=== PATIENT | male | born 1955 | race Caucasian/White ===

== ENCOUNTER 2023-03-24 05:25 | Day surgery (SDC) | payer MEDICARE, OTHER ==
[2023-03-18 12:06] LABS: CLARITY,URINE CLEAR (Clear); COLOR,URINE YELLOW (Yellow); GLUCOSE, URINE NEGATIVE (Neg); KETONES,URINE NEGATIVE (Neg); LEUKOCYTE ESTERASE ,URINE NEGATIVE (Neg); NITRITES, URINE NEGATIVE (Neg); OCCULT BLOOD,URINE NEGATIVE (Neg); PROTEIN,URINE NEGATIVE (Neg); UROBILINOGEN,URINE 0.2 E.U/dL (0.2-1.0)
[2023-03-18 12:07] LABS: UA COLLECTION TYPE CLN CATCH MIDSTREAM
[2023-03-18 12:09] LABS: BASOPHILS # (AUTO) 0.1 X10'3 (0-0.2); BASOPHILS % (AUTO) 0.9 % (0-1); EOSINOPHILS # (AUTO) 0.1 X10'3 (0-0.9); EOSINOPHILS % (AUTO) 1.6 % (0-6); LYMPHOCYTES # (AUTO) 1.6 X10'3 (1.1-4.8); LYMPHOCYTES % (AUTO) 28.7 % (21-51); MEAN CORPUSCULAR HEMOGLOBIN 29.6 PG (27.0-31.0); MEAN CORPUSCULAR HGB CONC 33.2 g/dL (33.0-36.5); MEAN CORPUSCULAR VOLUME 89.3 FL (78-98); MEAN PLATELET VOLUME 8.1 FL (7.4-10.4); MONOCYTES # (AUTO) 0.5 X10'3 (0-0.9); MONOCYTES % (AUTO) 8.6 % (2-12); NEUTROPHILS # (AUTO) 3.4 X10'3 (1.8-7.7); NEUTROPHILS % (AUTO) 60.2 % (42-75); PRE OP HEMATOCRIT 52.4 % (42.0-52.0); PRE OP HEMOGLOBIN 17.4 g/dL (14.0-17.9); PRE OP PLATELET COUNT 211 X10'3 (140-440); RED BLOOD COUNT 5.87 X10'6 (4.70-6.10); RED CELL DISTRIBUTION WIDTH 14.3 % (11.5-14.5)
[2023-03-18 12:22] LABS: PRE OP PROTIME 10.5 SECONDS (9.0-12.0)
[2023-03-18 12:27] LABS: ALBUMIN 4.3 G/DL (3.4-5.0); ALBUMIN/GLOBULIN RATIO 1.4 (1.1-1.5); ALKALINE PHOSPHATASE 57 IU/L (46-116); BLOOD UREA NITROGEN 16 MG/DL (7-18); BUN/CREATININE RATIO 16.7 (10.0-20.0); CALCIUM 8.9 MG/DL (8.5-10.1); CHLORIDE 105 MMOL/L (99-107); CREATININE 0.96 MG/DL (0.60-1.10); PRE OP ANION GAP 11 (8-16); PRE OP AST 51 U/L (10-37); PRE OP BILIRUB, TOTAL 0.7 MG/DL (0.0-1.0); PRE OP GLUCOSE 96 MG/DL (70-104); PRE OP POTASSIUM 4.4 MMOL/L (3.4-5.1); PRE OP SODIUM 142 MMOL/L (135-145); TOTAL CARBON DIOXIDE 26.4 MMOL/L (24-32); TOTAL PROTEIN 7.4 G/DL (6.4-8.2); eGFR 78 ML/MIN
[2023-03-18 12:28] LABS: PRE OP ALT 117 U/L (30-65)
[~2023-03-24] VITALS: Ht 182.9 cm; Wt 97.4 kg
[~2023-03-24 05:25] MED LIST: CITRUCEL; FEXO180T94 PO; LEVO112T52 PO; OSTEO BI-FLEX; ROSU20TA73 PO; ringers solution, lacted 1,000 ML IV SCH
[2023-03-24] MEDS ORDERED: famotidine 20mg tablet PO ONE (05:30)
[2023-03-24] MEDS ORDERED: cefazolin 2gm/D5W 100mL 100 ML IV ONE (05:30)
[2023-03-24 06:00] VITALS: BP 133/87
[2023-03-24] MEDS ORDERED: BUPIVAcaine/PF 2.5 mg/ml (0.25%) 30ml vial ONE (06:47)
[2023-03-24] MEDS ORDERED: cloNIDine hcl/PF 100mcg/ml inj ONE (07:19)
[2023-03-24] MEDS ORDERED: fentaNYL/PF 50MCG/1 ML 2ML syringe ONE (07:22)
[2023-03-24] MEDS ORDERED: midazolam 1 mg/ML 2ml injection ONE (07:24)
[2023-03-24] MEDS ORDERED: sevoflurane 250ml liquid IH ONE (07:26)
[2023-03-24] MEDS ORDERED: propofol inj 20 ML IV ONE (07:53)
[2023-03-24] MEDS ORDERED: LIDOcaine 1%/PF 5ML 10 MG/ML VIAL ONE (07:53)
[2023-03-24] MEDS ORDERED: LIDOcaine 2% (20mg/ml) 5ml vial ONE (07:53)
[2023-03-24] MEDS ORDERED: rocuronium 10mg/ml inj IV ONE (07:53)
[2023-03-24] MEDS ORDERED: dexamethasone sod phosphate 4mg/ml inj. ONE (07:53)
[2023-03-24] MEDS ORDERED: morphine 2 MG/ML inj. syringe IV PRN (07:55)
[2023-03-24] MEDS ORDERED: acetaminophen 1,000mg/100ml IV 100 ML IV PRN (07:55)
[2023-03-24] MEDS ORDERED: meperidine/PF 25mg/ml syringe IV PRN ×3 (07:55)
[2023-03-24] MEDS ORDERED: hydrALAZINE 20mg/ml inj. IV PRN (07:55)
[2023-03-24] MEDS ORDERED: labetalol 20mg/4ml (5mg/ml) syringe IV PRN (07:55)
[2023-03-24] MEDS ORDERED: ondansetron/PF 4mg/2ml inj IV PRN (07:55)
[2023-03-24] MEDS ORDERED: proCHLORperazine 10 MG/2 ml inj IV PRN (07:55)
[2023-03-24] MEDS ORDERED: ringers solution, lacted 1,000 ML IV SCH (07:55)
[2023-03-24] MEDS ORDERED: ketorolac trometh. 30mg/ml inj. IV ONE (07:55)
[2023-03-24] MEDS ORDERED: morphine 4 MG/ML inj SYRINge IV PRN (07:55)
[2023-03-24] MEDS ORDERED: ondansetron/PF 4mg/2ml inj ONE (08:00)
[2023-03-24] MEDS ORDERED: ROPIVAcaine 0.5% (5mg/ml) 30ml vial ONE (08:04)
[2023-03-24] MEDS ORDERED: ePHEDrine 50MG/ML INJ. ONE (08:35)
[2023-03-24] MEDS ORDERED: vancomycin 1,000mg inj ONE (09:14)
[2023-03-24 09:46] VITALS: BP 99/59
--- NOTE | 2023-03-24 09:46 | NUR ---
Received from OR via GINGER , accompanied by Anesthesiologist GEETA and report given by AnesthesiolgistJc MARKS. O2 VIA MASK AT 10 LPM; SR; 20 GUAGE IV TO L HAND; R SHOULDER IN ABDUCTOR SLING W/ ICE TO SHOULDER; DRESSING CDI; PT DENIES PAIN AT THIS TIME. Addendum: 03/24/23 at 1011 by Cordell Rico RN Amended: Links added.
[2023-03-24 10:00] VITALS: BP 121/80
[2023-03-24 10:10] VITALS: BP 94/58
[2023-03-24 10:20] VITALS: BP 114/73
[2023-03-24 10:30] VITALS: BP 113/77
--- NOTE | 2023-03-24 10:36 | NUR ---
ABLE TO SAFELY AMBULATE AND TRANSFER SELF. IV TAKEN OUT WITHOUT ANY COMPLICATIONS. ALL DISCHARGE INSTRUCTIONS COVERED WITH PATIENT AND ALL QUESTIONS ANSWERED. PATIENT TAKEN OUT VIA WHEELCHAIR WITHOUT INCIDENT TO PERSONAL VEHICLE WHERE FAMILY/FRIEND DROVE PATIENT HOME. SLING IN PLACE - WILL W/D Addendum: 03/24/23 at 1101 by Cordell Rico RN Amended: Links added.
== END 2023-03-24 10:36 | disposition home or self-care (01) ==
LOC: PAS 05:25
PROVIDERS: ATTEND Specialist
DX: S46.011A Strain of muscle(s) and tendon(s) of the rotator cuff of right shoulder, initial encounter (principal); M94.211 Chondromalacia, right shoulder; M65.811 Other synovitis and tenosynovitis, right shoulder; E03.9 Hypothyroidism, unspecified; E78.5 Hyperlipidemia, unspecified; Z79.899 Other long term (current) drug therapy; Z79.01 Long term (current) use of anticoagulants; Z98.890 Other specified postprocedural states; Z72.89 Other problems related to lifestyle; G89.18 Other acute postprocedural pain; W00.0XXA Fall on same level due to ice and snow, initial encounter; Y93.29 Activity, other involving ice and snow; Y92.89 Other specified places as the place of occurrence of the external cause; Y99.8 Other external cause status
CPT/HCPCS: 23412; 29822; 29826; 36415; 64415; 71045; 80053; 81003; 82948; 85025; 85610; 85730; 86885; 86900; 86901; C1713; J0690; J0735; J1100; J2250; J2405; J2704; J2795; J3010; J3370; J3490; J7120; Z7506; Z7508; A4565; A4618; A6449; A7000